=== PATIENT | female | born 1940 | race Caucasian/White ===

== ENCOUNTER → 2019-12-22 | Outpatient (CLI) | payer MEDICARE | LOC: YCHH 09:35 | PROVIDERS: ATTEND Family Medicine | DX: I50.32 Chronic diastolic (congestive) heart failure (principal); I10 Essential (primary) hypertension ==

== ENCOUNTER → 2019-12-31 | Outpatient (CLI) | payer MEDICARE ==
--- NOTE | 2020-01-01 11:04 | CT ---
Procedure: CT LUNG SCREENING Exam Date: December 31, 2019. Ordering Provider: Esvin Arroyo Clinical Indication: screening for lung cancer previous benign biopsy of lung nodule. This patient meets eligibility criteria for low-dose CT lung cancer screening. Comparison: None available at this time. Technique: Using a multislice scanner, sequential helical axial imaging was obtained in the thorax, 2.5 mm thickness, 2.5 mm separation, from the level of the thoracic inlet through the lung bases without IV contrast. A low dose protocol was utilized for BMI greater than 30: BMI: 31. CTDI: 2.93 mGy. 120. kVp. 75 mA. DLP 116 mGy-cm. 2D sagittal and coronal reconstructed images, 6.0 mm thickness, were obtained. This exam was performed according to our departmental dose optimization program which includes use of automated exposure control, adjustment of the mA and/or kV according to patient size and/or use of iterative reconstruction technique. Nodule measurements under 10 mm are given as mean value of 3 axes diameters. FINDINGS: Lungs and large airways: Solid nodule in the lateral posterior left upper lobe with mostly circumscribed margins and minimal lobularity measuring 1.2 x 1.1 cm. No calcifications and no spiculations. Best seen on axial series 2, images 38-42. Subpleural solid nodule circumscribed margins bilateral upper lobe 4.2 mm on axial image 2/41. 4.3 mm solid nodule located in the base of the right upper lobe abutting the mid major fissure, on images 2/61-62. Solid subpleural nodule on image 2/68 anterior base of the right upper lobe abutting the major fissure measuring 5.5 mm. Multiple solid nodules 4 to 5 mm in mean diameter associated with the horizontal fissure and the inferior major fissure in the subpleural right middle lobe and subpleural superior segment right upper lobe seen on images 2/66--88. This is also associated with pleural parenchymal scarring in the superior segment anteriorly. 4 mm groundglass nodule subpleural posterior recess right lower lobe on image 2/106. Numerous subpleural solid nodules in the left lower lobe with the largest measuring 4.1 mm on image 2/78. 4.5 mm solid subpleural nodule medially in the apex of the superior segment of the left lower lobe on image 2/47. Smaller subpleural solid nodules in the lingula. Pleura and space: No calcification or acute process. Minimal thickening. Mediastinum and anabelle: evaluation limited by low dose technique and lack of IV contrast. Normal sized lymph nodes with no dominant soft tissue mass. Heart and great vessels: Numerous coronary artery calcifications and stents. Atherosclerotic calcifications several brachiocephalic vessels and the thoracic aorta. Chest wall, lower neck, axillae: Evaluation also limited by same factors as described above. Normal size axillary lymph nodes. Hypodense mass in the left thyroid lobe measuring 3.6 x 2.6 cm with rim calcifications. Upper abdomen: Evaluation limited by low-dose technique. Multiple rim calcified gallstones. Included solid organs normal density and size. No free air or fluid. Abdominal aortic calcifications including branch vessels. Osseous structures: Evaluation limited by low dose MIP technique. Spondylosis at multiple levels. IMPRESSION: 1. Numerous bilateral solid subpleural and parenchymal nodules, mostly circumscribed no definite calcification. Perifissural nodules also present. Largest solid nodule measuring 1.2 x 1.1 cm in the subpleural left upper lobe. This may have been previously biopsied with benign findings. No acute infiltrate.. Will compare to prior imaging and reports when available. [facility] Best Practice Recommendations: please see below for Lung RADS category and FOLLOW-UP.* *Lung RADS category Category 4a - Findings for which additional diagnostic testing and/or tissue sampling is recommended (5 - 15% malignancy probability). Nodules: 1. Solid nodule(s): 8 to < 15 mm ( 268.1 to < 1767.1 mm3) at baseline OR growing < 8 mm (< 268.1 mm3) OR new 6 to < 8 mm (113.1 to < 268.1 mm3). 2. Part solid nodule(s): 6 mm ( 113.1 mm3) with solid component 6 mm to < 8 mm ( 113.1 to < 268.1 mm3) OR with a new or growing < 4 mm (< 33.5 mm3) solid component. 3. Endobronchial nodule Follow-up: Please return for 3 month LDCT; PET/CT may be used when there is a 8 mm ( 268.1 mm3) solid component. Risk of malignancy: 515%. Estimated population prevalence: 2%. Electronically signed by: Kadeem Warner MD 01/01/2020 11:03 AM [facility]
--- NOTE | 2020-01-01 11:20 | US ---
EXAM DESCRIPTION: Carotid Duplex: ULTRASOUND. CLINICAL HISTORY: 79 years Female carotid bruit COMPARISON: None. TECHNIQUE: Transcutaneous scanning utilizing spain-scale and Doppler modes to evaluate the bilateral carotid systems and vertebral arteries. Percentage of diameter of stenosis or no stenosis recorded will be based upon NASCET criteria. FINDINGS: Peak systolic/end diastolic velocities (CM-Sec) CCA Right 53/6 Left 74/17. ICA Right proximal 27/10, distal 62/13. Left proximal 91/27, mid 53/13. Vertebral Right 30/0 Left not detected.. ECA (PS Only) Right 61 left 177. ICA/CCA peak systolic velocity ratio: Right 1.2 Left 1.2 ICA/CCA end diastolic velocity ratio: Right 2.0 Left 1.6 Vertebral arteries: antegrade flow. Left vertebral artery was not detected. Comments: Atherosclerotic calcified plaque visualized bilaterally. Less than 25% diameter and area stenosis on the right. 65% area stenosis proximal left ICA, approximately 55% diameter stenosis. IMPRESSION: 1. Doppler evaluation of the bilateral carotid systems and vertebral arteries shows no hemodynamically significant stenoses (less than 70%). However, 65% area stenosis and 55% diameter stenosis in the proximal left ICA. Recommend correlation with contrast-enhanced CTA or MRA. 2. No significant amount of plaque in the carotid arteries bilaterally. Right vertebral artery showed antegrade-cephalad flow. Left vertebral artery not seen. Correlation with CTA/MRA as discussed above. Electronically signed by: Kadeem Warner MD 01/01/2020 11:18 AM [employer]
== END ==
LOC: CT 10:03
PROVIDERS: ATTEND Family Medicine
DX: Z12.2 Encounter for screening for malignant neoplasm of respiratory organs (principal); R91.8 Other nonspecific abnormal finding of lung field; Z87.891 Personal history of nicotine dependence; I65.22 Occlusion and stenosis of left carotid artery; R09.89 Other specified symptoms and signs involving the circulatory and respiratory systems
CPT/HCPCS: 93880; G0297

== ENCOUNTER → 2020-02-16 | Outpatient (CLI) | payer MEDICARE ==
--- NOTE | 2020-02-16 13:22 | CT ---
EXAM DESCRIPTION: CTA Neck CLINICAL HISTORY: CAROTID STENOSIS COMPARISON: Carotid ultrasound December 31, 2019. TECHNIQUE: Postcontrast CTA images of the neck are obtained with coronal and sagittal reconstructed images. Three-D MIP reconstructed images of the arterial vasculature are performed. This exam was performed according to our departmental dose-optimization program, which includes automated exposure control, adjustment of the mA and/or kV according to patient size and/or use of iterative reconstruction technique . FINDINGS: Elongation of the thoracic aorta with scattered calcified plaque. Normal origin of the great vessels without stenosis. No subclavian artery stenosis or occlusion. Mild intimal thickening of the right common carotid artery. Mild to moderate symmetric irregular calcified plaque of the right carotid bulb extending into the proximal right ICA seen resulting in less than 20% stenosis by NASCET criteria. No ulcerated plaque. Severe tortuosity of the proximal to mid right ICA is seen with 180 degree curvature of the vessel. Mild calcified plaque of the intracranial internal carotid artery with at least mild stenosis. origin of the right posterior cerebral artery is seen. Mild tortuosity and intimal thickening of the left common carotid artery. Mild to moderate irregular eccentric mostly calcified plaque of the left carotid bulb to proximal left internal carotid artery is seen. Tortuosity of the vessel limits evaluation. Less than 50% focal stenosis at the origin of the left internal carotid artery seen. The remainder of the ICA is patent. Mild calcified plaque of the intracranial carotid artery is seen with mild stenosis. origin of the left posterior cerebral artery is seen. No aneurysm or vascular malformation of the visualized intracranial arterial vasculature. Left vertebral artery is dominant and patent without flow-limiting stenosis. Right vertebral artery is very small and is not seen above the level of the foramen magnum. Small basilar artery is identified. Postsurgical changes from right thyroidectomy. Right lobe thyroid is enlarged measuring at least 4.1 cm transverse with mostly solid nodule measuring 3.3 cm transverse and anterior calcifications. Mass effect of the trachea which is deviated towards the right by 1.5 cm at the thoracic inlet is seen. Nonspecific less than 1 cm submandibular and cervical chain lymphadenopathy. Visualized lung apices show no acute findings. Nonspecific areas of groundglass attenuation in the lungs are seen. Facet arthropathy of the upper and lower cervical spine are seen. Soft tissue attenuation mass anterior to the right parotid gland measures 1.7 cm. IMPRESSION: Tortuosity of the left carotid bulb to proximal ICA with atherosclerotic disease results in at least 50% stenosis by NASCET criteria. Mild to moderate atherosclerotic disease of the right carotid bulb to proximal ICA seen without high-grade or flow limiting stenosis. Significant tortuosity of the right ICA is seen. Mild atherosclerotic disease of the intracranial internal carotid arteries is seen with mild stenoses. origin of the bilateral posterior cerebral arteries is seen. Large mass of the left lobe thyroid. Recommend fine-needle aspiration if not previously performed. The trachea is deviated towards the right secondary to this lesion. Soft tissue attenuation mass anterior to the right parotid gland could represent enlarged lymph node versus parotid gland mass. Further evaluation with ultrasound and ultrasound-guided fine-needle aspiration is recommended. Electronically signed by: Lanre Álvarez MD 02/16/2020 1:20 PM [employer]
== END ==
LOC: CT 09:10
PROVIDERS: ATTEND Family Medicine
DX: I65.23 Occlusion and stenosis of bilateral carotid arteries (principal); E07.9 Disorder of thyroid, unspecified; M79.9 Soft tissue disorder, unspecified

== ENCOUNTER → 2020-02-24 | Outpatient (CLI) | payer MEDICARE | LOC: YCFC.O 17:02 | PROVIDERS: ATTEND Family Medicine | DX: I50.32 Chronic diastolic (congestive) heart failure (principal) ==